=== PATIENT | male | born 1990 | race Caucasian/White ===

== ENCOUNTER 2022-05-12 19:40 | Emergency (ER) | payer SELFPAY ==
[2022-05-12 20:00] VITALS: BP 107/79; PULSE 88; RESP 20; TEMP 98; BMI 23.5
[2022-05-12] MEDS ORDERED: ALBUTEROL SO4 2.5/IPRATROPIUM 0.5 INH SOL 3 ML VIAL.NEB. NEB ONE ×2 (20:57→21:05)
[2022-05-12] MEDS ORDERED: predniSONE 20 MG TABLET (UD) PO ONE (20:57)
[2022-05-12] MEDS ORDERED: predniSONE 20 MG TABLET (UD) ONE (21:03)
== END 2022-05-12 21:42 | disposition home or self-care (01) ==
LOC: JER 19:40 → JERFT 19:40
PROC: 3E0F7GC Introduction of Other Therapeutic Substance into Respiratory Tract, Via Natural or Artificial Opening (ICD-10-PCS; principal; 2022-05-12)
DX: J45.901 Unspecified asthma with (acute) exacerbation (principal)
CPT/HCPCS: 71046-TC-FY; 99283-25